=== PATIENT | male | born 1935 | race Caucasian/White ===

== ENCOUNTER 2016-11-08 21:15 | Emergency (ER) | payer MEDICARE, MEDICAID ==
[~2016-11-08] VITALS: Ht 165.1 cm; Wt 63.5 kg
--- NOTE | 2016-11-08 22:00 | NUR ---
81 YO FEMALE BB SELF. PT IS ALERT X3, C/O RASH ON ABD. PT AMBULATED TO ER BED WITH STEAYD GAIT, SKIN WARM AND DRY, RR EVEN AND UNLABORED. AWAITING ORDERS FROM PROVIDER
[2016-11-08] MEDS ORDERED: ACYCLOVIR 200 MG CAPSULE PO ONE (23:00)
[2016-11-08] MEDS ORDERED: ACYCLOVIR 200 MG CAPSULE ONE (23:17)
[2016-11-08 23:52] LABS: BASOPHILS % (AUTO) 0.4 % (0.0-2.0); EOSINOPHILS # (AUTO) 0.2 /CMM (0.0-0.7); EOSINOPHILS % (AUTO) 1.8 % (0.0-6.0); HEMATOCRIT 37 % (39-51); HEMOGLOBIN 12.5 g/dL (13.5-17.5); LYMPHOCYTES # (AUTO) 1.3 /CMM (0.8-4.8); LYMPHOCYTES % (AUTO) 14.8 % (20.0-44.0); MEAN CORPUSCULAR HEMOGLOBIN 31 PG (26.0-33.0); MEAN CORPUSCULAR HGB CONC 34 g/dl (31.0-36.0); MEAN CORPUSCULAR VOLUME 92 fL (80-96); MONOCYTES # (AUTO) 1.4 /CMM (0.1-1.30); MONOCYTES % (AUTO) 16.6 % (2.0-12.0); NEUTROPHILS # (AUTO) 5.8 /CMM (1.8-8.9); NEUTROPHILS % (AUTO) 66.4 % (43.0-81.0); PLATELET COUNT (AUTO) 232 /CMM (150-450); RDW COEFFICIENT OF VARIATION 13.8 (11.5-15.0); RED BLOOD CELL COUNT(AUTO) 4.06 MIL/uL (4.5-6.0); WHITE BLOOD COUNT (AUTO) 8.7 K/uL (4.3-11.0)
[2016-11-09 00:02] LABS: CALCIUM, SERUM 9.1 mg/dL (8.5-10.1); CREATININE 2.1 mg/dL (0.6-1.3); POTASSIUM 4.2 mmol/L (3.5-5.1)
[2016-11-09 00:05] LABS: INR 0.95 (0.87-1.13); PROTHROMBIN TIME 10.1 SECS (9.5-12.7)
[2016-11-09 00:19] LABS: BAND % (MANUAL) 4 % (0.0-5.0); EOSINOPHILS % (MANUAL) 1 % (0-4); LYMPHOCYTES % (MANUAL) 12 % (16-48); MONOCYTES % (MANUAL) 19 % (0-11.0); NEUTROPHILS % (MANUAL) 64 (42-76)
[2016-11-09 00:20] LABS: PLATELET ESTIMATE ADEQUATE
[2016-11-09 00:21] LABS: ALBUMIN 3.5 g/dL (3.4-5.0); BILIRUBIN,DIRECT 0.1 mg/dL (0.0-0.2); BILIRUBIN,TOTAL 0.3 mg/dL (0.2-1.0); TOTAL PROTEIN, SERUM 7.3 g/dL (6.4-8.2)
[2016-11-09 01:14] VITALS: BP 143/78
--- NOTE | 2016-11-09 01:14 | NUR ---
Patient discharged to home in stable condition. Written and verbal after care instructions given. Patient verbalizes understanding of instruction. PT ambulatory with a steady gait
== END 2016-11-09 01:16 | disposition home or self-care (01) ==
LOC: ER 21:15
DX: S46.912A Strain of unspecified muscle, fascia and tendon at shoulder and upper arm level, left arm, initial encounter (principal); S46.911A Strain of unspecified muscle, fascia and tendon at shoulder and upper arm level, right arm, initial encounter; S29.011A Strain of muscle and tendon of front wall of thorax, initial encounter; S86.912A Strain of unspecified muscle(s) and tendon(s) at lower leg level, left leg, initial encounter; S86.911A Strain of unspecified muscle(s) and tendon(s) at lower leg level, right leg, initial encounter; B02.9 Zoster without complications; E11.9 Type 2 diabetes mellitus without complications; I10 Essential (primary) hypertension; X58.XXXA Exposure to other specified factors, initial encounter; Y93.89 Activity, other specified; Y92.89 Other specified places as the place of occurrence of the external cause; Y99.9 Unspecified external cause status
CPT/HCPCS: 36415; 80048; 80076; 82550; 82962; 85025; 85610; 99284; A4606; Z7610

== ENCOUNTER 2016-11-11 08:39 | Emergency (ER) | payer MEDICARE, MEDICAID ==
[~2016-11-11] VITALS: Ht 152.4 cm; Wt 52.2 kg
[2016-11-11 08:49] VITALS: BP 149/76
== END 2016-11-11 09:06 | disposition home or self-care (01) ==
LOC: ER 08:41
DX: B02.9 Zoster without complications (principal); I10 Essential (primary) hypertension; E11.9 Type 2 diabetes mellitus without complications
CPT/HCPCS: 99281; A4606; Z7502; Z7610

== ENCOUNTER 2016-11-16 10:18 | Emergency (ER) | payer MEDICARE, MEDICAID ==
[~2016-11-16] VITALS: Ht 162.6 cm; Wt 59.0 kg
[2016-11-16 10:41] VITALS: BP 146/67
== END 2016-11-16 12:03 | disposition home or self-care (01) ==
LOC: ER 10:19
DX: B02.9 Zoster without complications (principal); L29.9 Pruritus, unspecified; I10 Essential (primary) hypertension; E11.9 Type 2 diabetes mellitus without complications
CPT/HCPCS: A4606; Z7610

== ENCOUNTER 2016-11-21 05:41 | Emergency (ER) | payer MEDICARE, MEDICAID ==
[~2016-11-21] VITALS: Ht 162.6 cm; Wt 54.4 kg
[2016-11-21 06:02] VITALS: BP 139/70
== END 2016-11-21 06:31 | disposition home or self-care (01) ==
LOC: ER 05:43
DX: B02.9 Zoster without complications (principal); I10 Essential (primary) hypertension; E11.9 Type 2 diabetes mellitus without complications
CPT/HCPCS: A4606; Z7610